=== PATIENT | male | born 1995 | race Caucasian/White ===

== ENCOUNTER 2020-01-16 07:48 | Emergency (ER) | payer MEDICAID, SELFPAY ==
--- NOTE | ~2020-01-16 | XR_ITS ---
EXAMINATION: XR sacrum coccyx min 2V DATE: 01/16/2020 08:28 INDICATION: Tailbone pain. Injury. TECHNIQUE: 3 views of the sacrum and coccyx were obtained. COMPARISON: None. FINDINGS: Bone alignment is normal. No fracture. The sacroiliac joints are normal. IMPRESSION: 1. Normal sacrum and coccyx. Reviewed, dictated and finalized at location A.
[2020-01-16 07:53] VITALS: BP 138/78; PULSE 72; RESP 18; TEMP 36.3; O2SAT 96
--- NOTE | 2020-01-16 08:11 | ED.GENADULT ---
HPI - General Adult General Chief complaint: Unspecified Stated complaint: Fall, Tailbone Pain Time Seen by Provider: 01/16/20 07:57 History of Present Illness HPI narrative: Patient is a 24-year-old male who presents to the ER with pain over his tailbone. Reports he was at a [employer] house last night when he slipped on some stairs and landed directly onto his buttock. No numbness or tingling to his lower extremities or his private area. No difficulty with urination/defecation. No chest pain/shortness of breath. Did not strike his head or lose consciousness. Pain is worse with direct palpation and sitting. It is also worsened by walking. No blood from his rectum. No low back pain. Related Data Allergies Allergy/AdvReac Type Severity Reaction Status Date / Time ibuprofen Allergy Swelling Verified 01/16/20 07:57 naproxen Allergy Swelling Verified 01/16/20 07:57 Review of Systems Musculoskeletal: Musculoskeletal: Denies back pain, Denies joint swelling and Denies muscle cramps Comments: Pain over tailbone Neurologic: Denies syncope, Denies focal weakness and Denies numbness PMFSH Past Medical History Medical History (Updated 01/16/20 @ 09:29 by Josue Reynolds MD) Healthy adult male Surgical History Surgical History (Updated 01/16/20 @ 08:18 by Josue Reynolds MD) No pertinent past surgical history Social History Social History (Updated 01/16/20 @ 08:18 by Josue Reynolds MD) Alcohol intake: current Exam Narrative: Exam Narrative: GENERAL: Well-appearing, well-nourished, and in no acute distress. HEAD: Normocephalic, atraumatic. CHEST: Clear to auscultation. No respiratory distress. EXTREMITIES: Normal range of motion. No edema. Back: No midline tenderness of the lumbar spine or paraspinal musculature. There is point tenderness directly over the sacrum/coccyx near the rectum. No bruising or abrasions or blood noted. Sensation intact. No evidence of pilonidal cyst. SKIN: Warm, dry, no rash. NEURO: No focal deficits. Alert and oriented x3. Course Vital Signs Vital signs: Vital Signs Temperature 97.3 F L 01/16/20 07:53 Pulse Rate 72 01/16/20 07:53 Respiratory Rate 18 01/16/20 07:53 Blood Pressure 138/78 01/16/20 07:53 Pulse Oximetry 96 01/16/20 07:53 Temperature 97.3 F L 01/16/20 08:52 Pulse Rate 72 01/16/20 07:53 Respiratory Rate 18 01/16/20 07:53 Blood Pressure 138/78 01/16/20 07:53 Pulse Oximetry 96 01/16/20 07:53 Medical Decision Making Vital Signs Vital Signs: Vital Signs Temperature 97.3 F L 01/16/20 07:53 Pulse Rate 72 01/16/20 07:53 Respiratory Rate 18 01/16/20 07:53 Blood Pressure 138/78 01/16/20 07:53 Pulse Oximetry 96 01/16/20 07:53 Temperature 97.3 F L 01/16/20 08:52 Pulse Rate 72 01/16/20 07:53 Respiratory Rate 18 01/16/20 07:53 Blood Pressure 138/78 01/16/20 07:53 Pulse Oximetry 96 01/16/20 07:53 Imaging Data Radiologist's impression: ITS Impressions Sacrum and Coccyx X-Ray 01/16/20 08:31 IMPRESSION: 1. Normal sacrum and coccyx. Discharge Plan Discharge Clinical Impression: Coccygeal contusion Patient Disposition: Home, Self-Care Condition: Stable Instructions: Coccyx Injury (ED) Additional Instructions: It would be loera to invest in an inflatable doughnut to sit on to help with your discomfort. Make sure you are not constipated and straining as this may also increase your discomfort. Return to the ER if you suffer new injury, you cannot urinate/stool, or you have numbness or tingling in your private parts. Prescriptions: New hydrocodone-acetaminophen 5-325 mg tablet 1 tablet PO Q6H PRN (Reason: pain) Qty: 12 RF: 0 docusate sodium [Colace] 100 mg capsule 100 mg PO DAILY Qty: 10 RF: 0 Follow-up/Referrals: Gamaliel Yen MD [Physician] - 1 Week UNKNOWN,DOCTOR [Primary Care Provider] - Stand Alone Forms: Work/School Release IP
[2020-01-16 08:52] VITALS: TEMP 36.3
== END 2020-01-16 09:46 | disposition home or self-care (01) ==
PROVIDERS: Emergency Provider Emergency Medicine
DX: S30.0XXA Contusion of lower back and pelvis, initial encounter (principal); W10.9XXA Fall (on) (from) unspecified stairs and steps, initial encounter
CPT/HCPCS: 72220; 99283; A9270